=== PATIENT | female | born 1965 | race Caucasian/White ===

== ENCOUNTER 2018-02-19 06:45 | Day surgery (SDC) | payer BC ==
[2018-02-13 07:57] VITALS: BMI 25.0
--- NOTE | 2018-02-18 09:09 | HP ---
Admitting History and Physical - Primary Care Physician PCP: Meagan Marlow - Admission Chief Complaint: Left breast radial sclerosing/intraductal mass History of Present Illness: Patient is a 52 yo female noted to have an upper outer quad mass on screening mammo. Patient underwent a stereo core bx which was c/w radial sclerosing lesion and intraductal papilloma. Patient is now to undergo a WE with NL. History Source: Patient Limitations to Obtaining History: No Limitations - Past Medical History Gastrointestinal: Yes: Other (microscopic colitis) - Smoking History Smoking history: Unknown if ever smoked Have you smoked in the past 12 months: No - Alcohol/Substance Use Hx Alcohol Use: Yes (social) Home Medications - Allergies Allergies/Adverse Reactions: Allergies Allergy/AdvReac Type Severity Reaction Status Date / Time niacin Allergy Severe Swelling Verified 02/13/18 07:46 Sulfa (Sulfonamide Allergy Intermediate Rash Verified 02/13/18 07:47 Antibiotics) epinephrine AdvReac Vomiting Verified 02/13/18 07:46 - Home Medications Home Medications: Ambulatory Orders Albuterol Sulfate [Proair Hfa] 8.5 gm IH Q4H PRN 02/13/18 Calcium Carbonate/Vitamin D3 [Calcium 600+D Softgel] 1 each PO DAILY 02/13/18 Ethinyl Estradiol/Drospirenone [Ocella 3 mg-0.03 mg Tablet] 1 each PO DAILY L.acidoph,Paracasei, B.lactis [Probiotic] 1 each PO DAILY 02/13/18 Magnesium Oxide [Magnesium] 400 mg PO DAILY 02/13/18 Family Disease History - Family Disease History Family Disease History: CA: Father (prostate cancer), Mother (lung cancer ) Review of Systems - Review of Systems Constitutional: reports: No Symptoms Cardiovascular: reports: No Symptoms Respiratory: reports: No Symptoms Physical Examination Constitutional: Yes: Well Nourished Cardiovascular: Yes: WNL Respiratory: Yes: WNL Problem List - Problems (1) Breast mass, left Assessment/Plan: Plan: Left breast WE with NL Code(s): N63.20 - UNSPECIFIED LUMP IN THE LEFT BREAST, UNSPECIFIED QUADRANT
[2018-02-19] MEDS ORDERED: ONDANSETRON 4 MG/2 ML VIAL ONE ×2 (07:50→10:55)
[2018-02-19] MEDS ORDERED: DEXAMETHASONE SOD PHOSPHATE 4 MG/1 ML VIAL ONE (07:50)
[2018-02-19] MEDS ORDERED: PROPOFOL 20 ML ONE (07:51)
[2018-02-19] MEDS ORDERED: MIDAZOLAM HCL 2 MG/2 ML SINGLE DOSE VIAL ONE (07:51)
[2018-02-19] MEDS ORDERED: SUCCINYLCHOLINE CHLORIDE 200 MG/10 ML VIAL ONE (07:51)
[2018-02-19] MEDS ORDERED: LORazepam 0.5 MG TABLET ONE (08:07)
[2018-02-19] MEDS ORDERED: BUPIVACAINE HCL/PF 2.5 MG/ML - 30 ML VIAL IJ ONE (08:20)
[2018-02-19] MEDS ORDERED: LIDOCAINE HCL 1%, 10 MG/ML (20ML VIAL) ONE (08:20)
[2018-02-19] MEDS ORDERED: ACETAMINOPHEN INJECTION 100 ML IVPB ONE (09:29)
[2018-02-19] MEDS ORDERED: LACTATED RINGERS SOLUTION 1,000 ML IV SCH (10:30)
[2018-02-19] MEDS ORDERED: ONDANSETRON 4 MG/2 ML VIAL IVPUSH PRN ×2 (10:30→10:32)
[2018-02-19] MEDS ORDERED: oxyCODONE HCL 5 MG TABLET PO PRN (10:30)
[2018-02-19] MEDS ORDERED: KETOROLAC TROMETHAMINE 30 MG/1 ML VIAL IVPUSH PRN (10:32)
[2018-02-19 10:40] VITALS: TEMP 98.1
[2018-02-19] MEDS ORDERED: DEXTROSE 5%-0.45% SALINE 1,000 ML IV SCH (10:45)
[2018-02-19] MEDS ORDERED: KETOROLAC TROMETHAMINE 30 MG/1 ML VIAL IVPUSH ONE (10:46)
--- NOTE | 2018-02-19 10:55 | OP ---
DATE OF OPERATION: 02/19/2018 PREOPERATIVE DIAGNOSIS: Left breast papilloma with radial scar. POSTOPERATIVE DIAGNOSIS: Left breast papilloma with radial scar. PROCEDURE: Left mammographically localized partial mastectomy. ANESTHESIA: General intubated. ATTENDING SURGEON: Indu Marlow MD DIE CASTING MACHINE SETTER: MARGOT Sims ESTIMATED BLOOD LOSS: Minimal. COMPLICATIONS: None. DESCRIPTION OF PROCEDURE: Patient was made aware of the risks and benefits of the procedure and consented. Preoperatively, patient went to the radiology suite where needle and wire were placed next to the index lesion. She was then placed in a supine position, and after general anesthesia was induced, the patient was intubated. The operative site was prepped and draped in the usual sterile fashion. A curvilinear para-areolar incision was made using electrocautery. Thick skin flaps were made to the proximal portion of the needle. Needle was withdrawn through the puncture site and a wire through the wound. Tissues around the wire were then sharply excised and submitted with a short suture superior, long suture lateral. Specimen radiograph confirmed the presence of the index lesion. The wound was copiously irrigated with normal saline. Hemostasis maintained by electrocautery. The wound was then closed with deep 3-0 Vicryl, followed by a running subcuticular 4-0 Monocryl. Dermabond and a sterile dressing as well as a compression bra were then applied, and the patient, having tolerated the procedure, was transferred to the recovery room in excellent condition. INDU MARLOW M.D. [id number]
[2018-02-19 12:11] VITALS: BP 118/64; PULSE 74
--- NOTE | 2018-02-21 16:46 | PATH ---
Surgical Pathology Report Patient Name: SANDRO ELMORE [facility] [place]. Rec. #: [id number] /Age/Gender: 1965 (Age: 52) / F Account: [id number] Location: [facility] Taken: 02/19/2018 Received: 02/19/2018 Reported: 02/21/2018 Physicians: Meagan Marlow M.D. Specimen(s) Received LEFT BREAST WIDE EXCISION Clinical History Radial sclerosing lesion Final Diagnosis BREAST, LEFT, WIDE EXCISION: RADIAL SCAR WITH ASSOCIATED FIBROCYSTIC CHANGES INCLUDING USUAL AND PAPILLARY DUCTAL HYPERPLASIA AND COLUMNAR CELL CHANGE WITH ASSOCIATED CALCIFICATIONS. SMALL INTRADUCTAL PAPILLOMAS. 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 (SEE NOTE) PRIOR BIOPSY SITE CHANGES ARE PRESENT. Note: Immunostains performed at [facility] show the following results: Myoepithelial immunohistochemical markers (SMM-HC & p63) demonstrate the presence of myoepithelial cells in the glandular component of radial scar. This finding supports the diagnosis. The foci are ALH are negative for E-Cadherin, which supports lobular phenotype. Electronically Signed Yadi Delgado M.D. Gross Description Received in formalin, labeled "left breast wide excision," is a 4.5 x 3.1 x 2.6 cm. bai-yellow, irregular, portion of fibroadipose tissue with a needle localization wire present. There is a short suture marking the superior aspect and a long suture marking the lateral aspect, per the surgeon. There is no skin present. The specimen is inked as follows: superior and lateral blue; inferior green; medial yellow; anterior red; deep black. The specimen is serially sectioned from superior to inferior. Sectioning reveals a 2.2 x 1.7 x 1.6 cm bai, firm to indurated, ill-defined lesion abutting the anterior, lateral, deep, medial and inferior margins. [employer] sections are submitted in 10 cassettes as follows: [id number] and sequentially submitted lesion from superior to inferior (each with anterior, deep and lateral margins); 7-8-medial margin; 9-superior margin; 10-inferior margin. Time to formalin fixation: 5 minutes Total formalin fixation time: Approximately 32 hours. 02/20/201802/20/2018
== END 2018-02-19 12:15 | disposition home or self-care (01) ==
LOC: FASU 06:45
PROVIDERS: ATTEND Surgery Surgical Oncology
PROC: 0HBU0ZZ Excision of Left Breast, Open Approach (ICD-10-PCS; principal; 2018-02-19 09:54)
DX: D24.2 Benign neoplasm of left breast (principal); N64.89 Other specified disorders of breast
CPT/HCPCS: 19281; 84703; 88307-TC; 88342-TC; J0131